=== PATIENT | male | born 1990 | race Caucasian/White ===

== ENCOUNTER 2021-05-08 22:54 | Emergency (ER) | payer SELFPAY ==
[~2021-05-08] VITALS: Ht 182.9 cm; Wt 90.0 kg
[2021-05-08] MEDS ORDERED: HALOPERIDOL 5MG TABLET PO ONE (23:30)
[2021-05-08] MEDS ORDERED: LORAZEPAM 1MG TABLET PO ONE (23:30)
[2021-05-09 00:05] LABS: BASOPHILS % 0.4 % (0.0-2.0); EOSINOPHILS % 0.1 % (0.0-5.0); HEMATOCRIT. 40.2 % (42.0-52.0); LYMPHOCYTES % 8.4 % (20.0-50.0); MEAN CORPUSCULAR HEMOGLOBIN 32.1 pg (28.0-32.0); MEAN CORPUSCULAR VOLUME 92.2 fL (80.0-94.0); MEAN PLATELET VOLUME 8.8 fl (7.4-10.4); MONOCYTES % 7.5 % (2.0-8.0); NEUTROPHILS % 83.6 % (40.0-76.0); PLATELET 260 x1000/uL (130-400); RED BLOOD CELL COUNT 4.36 mill/uL (4.7-6.1); RED CELL DISTRIBUTION WIDTH 13.2 % (11.6-14.6)
[2021-05-09 00:10] LABS: CHLORIDE 113 mEq/L (98-107)
[2021-05-09 00:13] LABS: ETHANOL BLOOD < 10 mg/dL
[2021-05-09] MEDS ORDERED: LORAZEPAM 1MG TABLET PO ONE (06:30)
[2021-05-09 06:58] VITALS: BP 129/75
== END 2021-05-09 06:59 | disposition home or self-care (01) ==
LOC: ER 23:15
DX: F29 Unspecified psychosis not due to a substance or known physiological condition (principal); Z00.00 Encounter for general adult medical examination without abnormal findings
CPT/HCPCS: 36415; 80053; 80320; 85025; 99285; J1630; Z7610; G0480